=== PATIENT | female | born 1975 | race Caucasian/White ===

== ENCOUNTER 2016-06-22 17:45 | Emergency (ER) | payer OTHER ==
[~2016-06-22 17:45] MED LIST: ANTIVERT25 MG PO; DARVOCET-N 1001 TAB PO; ENABLEX7.5 MG; LEVOTHROID88 MCG; PERCOCET 5/3251 TAB PO; SYNTHROID125 MCG
[2016-06-22] MEDS ORDERED: SYNTHROID150 MC1 PO (17:54)
[2016-06-22] MEDS ORDERED: VIIBRYD20 M1 PO (17:54)
[2016-06-22] MEDS ORDERED: GLAUCOMA EYE DROPS (17:55)
[2016-06-22] MEDS ORDERED: ATIVAN1 M2 PO (17:55)
[2016-06-22] MEDS ORDERED: PERCOCET 5-3251 EACH PO (18:11)
[2016-06-22] MEDS ORDERED: PENICILLIN V P500 M1 PO (18:11)
== END 2016-06-22 18:20 ==
LOC: EDMED 17:45
DX: K08.89 Other specified disorders of teeth and supporting structures (principal); E03.9 Hypothyroidism, unspecified; Z79.899 Other long term (current) drug therapy